=== PATIENT | male | born 1960 | race Hispanic/Latino ===

== ENCOUNTER 2016-07-18 19:52 | Emergency (ER) | payer OTHER ==
[2016-07-18] MEDS ORDERED: MORPHINE IM ONE (21:26)
[2016-07-18 21:58] LABS: Alanine Aminotransferase 11 units/L (7-56); Albumin 3.7 g/dL (3.9-5); Alkaline Phosphatase 92 units/L (35-129); Anion Gap 16 mmol/L; Blood Urea Nitrogen 12 mg/dL (9-20); Calcium 8.8 mg/dL (8.4-10.2); Carbon Dioxide 27 mmol/L (22-30); Chloride 99.7 mmol/L (98-107); Glucose 166 mg/dL (75-100); Lipase 29 units/L (13-60); Potassium 4.1 mmol/L (3.6-5.0); Sodium 139 mmol/L (137-145); Total Protein 7.4 g/dL (6.3-8.2)
[2016-07-18 22:04] LABS: Basophils % (Auto) 0.7 % (0.0-1.8); Eosinophils % (Auto) 3.2 % (0.0-4.3); Hematocrit 43.9 % (35.5-45.6); Hemoglobin 14.6 gm/dl (11.8-15.2); Mean Corpuscular HGB Conc 33 % (32-34); Mean Corpuscular Hemoglobin 33 pg (28-32); Mean Corpuscular Volume 98 fl (84-94); Platelet Count 246 K/mm3 (140-440); Red Blood Count 4.48 M/mm3 (3.65-5.03); Red Cell Distribution Width 13.2 % (13.2-15.2); White Blood Count 13.7 K/mm3 (4.5-11.0)
[2016-07-18 23:51] LABS: Bacteria,Urine 1+ /HPF (Negative); Bilirubin,Urine NEG (Negative); Blood,Urine NEG (Negative); Ketones,Urine NEG (Negative); Leukocyte Esterase,Urine NEG (Negative); Mucus,Urine FEW /HPF; Nitrite,Urine NEG (Negative); Protein,Urine <15 mg/dL mg/dL (Negative)
[2016-07-19] MEDS ORDERED: TORADOL IV ONE (00:08)
[2016-07-19] MEDS ORDERED: MORPHINE IV ONE (00:08)
--- NOTE | 2016-07-19 00:08 | Emergency Department Report ---
ED General Adult HPI - General Chief complaint: Abdominal Pain Stated complaint: RT FLANK PAIN/POSS KIDNEY STONE Time Seen by Provider: 07/18/16 23:54 Source: patient, family, RN notes reviewed, old records reviewed Mode of arrival: Ambulatory Limitations: No Limitations - History of Present Illness Initial comments: This is a 55-year-old male. He is previously unknown to me. His primary care doctor is with [facility]. Has a past medical history of obesity, diabetes, and nephrolithiasis. The patient presents to the ER with 3 days of flank pain that intermittently radiates to the right lower quadrant. The pain is sharp. It has no exacerbating or relieving factors. Currently denies nausea, vomiting, chest pain, shortness of breath. He denies testicular pain. He denies irritative and obstructive urinary symptoms. The patient had a noncontrast CT scan of the abdomen and pelvis performed at [facility] on 07/17/2016, which demonstrated "mild bilateral nephrocalcinosis similar to prior study. No hydronephrosis or ureteral stones noted on current examination. The appendix is visualized and appears to be normal. Os closed In addition, the CT scan was essentially unchanged compared to a prior CT scan from 05/26/2012. He was also noted to have chronic arthritic changes and bony changes which were essentially unchanged from a prior CT scan. There is no posterior leg pain. There is no posterior leg swelling. No recent trips greater than 4 hours. No recent hospital admissions. The patient was given morphine intramuscularly in the waiting room prior to my evaluation, he reports that this markedly improved his pain. He currently rates his pain as a 7 out of 10. -: Sudden Location: abdomen Radiation: flank Severity scale (0 -10): 7 Quality: aching Improves with: medication, rest Worsens with: movement Associated Symptoms: denies: confusion, chest pain, diaphoresis, headaches, loss of appetite, malaise, nausea/vomiting, shortness of breath, syncope, weakness - Related Data Previous Rx's Medication Instructions Recorded Last Taken Type Ketorolac [Toradol] 10 mg PO Q6H PRN #20 tablet 07/19/16 Unknown Rx Methocarbamol [Robaxin TAB] 750 mg PO TID PRN #30 tab 07/19/16 Unknown Rx Allergies Allergy/AdvReac Type Severity Reaction Status Date / Time No Known Allergies Allergy Verified 03/03/14 03:35 ED Review of Systems ROS: Stated complaint: RT FLANK PAIN/POSS KIDNEY STONE Other details as noted in HPI Constitutional: denies: fever Eyes: denies: vision change ENT: denies: epistaxis Respiratory: denies: cough Cardiovascular: denies: chest pain Gastrointestinal: abdominal pain Genitourinary: as per HPI Musculoskeletal: as per HPI, back pain Skin: as per HPI Neurological: as per HPI Psychiatric: as per HPI ED Past Medical Hx - Past Medical History Previous Medical History?: Yes Hx Diabetes: Yes Hx Kidney Stones: Yes - Surgical History Past Surgical History?: Yes Additional Surgical History: Left knee replacement. rhinoplasty - Social History Smoking Status: Never Smoker Substance Use Type: None - Medications Home Medications: Home Medications Medication Instructions Recorded Confirmed Last Taken Type Ketorolac [Toradol] 10 mg PO Q6H PRN #20 tablet 07/19/16 Unknown Rx Methocarbamol [Robaxin TAB] 750 mg PO TID PRN #30 tab 07/19/16 Unknown Rx ED Physical Exam - General Limitations: No Limitations General appearance: alert, in no apparent distress, obese - Head Head exam: Present: atraumatic, normocephalic - Eye Eye exam: Present: normal appearance, EOMI. Absent: nystagmus - ENT ENT exam: Present: normal exam, normal orophraynx, mucous membranes moist, normal external ear exam - Neck Neck exam: Present: normal inspection, full ROM. Absent: tenderness, meningismus - Respiratory Respiratory exam: Present: normal lung sounds bilaterally. Absent: respiratory distress, wheezes, rales, rhonchi, stridor, chest wall tenderness, accessory muscle use, decreased breath sounds, prolonged expiratory - Cardiovascular Cardiovascular Exam: Present: regular rate, normal rhythm, normal heart sounds. Absent: bradycardia, tachycardia, irregular rhythm, systolic murmur, diastolic murmur, rubs, gallop - GI/Abdominal GI/Abdominal exam: Present: soft, normal bowel sounds. Absent: distended, tenderness, guarding, rebound, rigid, pulsatile mass - Rectal Rectal exam: Present: deferred - exam: Present: normal inspection, other (is no testicular tenderness. There is normal testicular lie. There is normal cremasteric reflex bilaterally. No inguinal hernias are appreciated on direct examination. Escorted by nurse Albert Mooney during testicular exam.). Absent: scrotal swelling - Extremities Exam Extremities exam: Present: normal inspection, full ROM, normal capillary refill. Absent: pedal edema, joint swelling, calf tenderness - Back Exam Back exam: Present: normal inspection, full ROM, paraspinal tenderness. Absent : tenderness, CVA tenderness (R) - Neurological Exam Neurological exam: Present: alert, oriented X3, normal gait, other (Extraocular movements intact. Tongue midline. No facial droop. Facial sensation intact to light touch in the V1, V2, V3 distribution bilaterally. 5 and 5 strength in 4 extremities.. Sensation is intact to light touch in 4 extremities.). Absent : motor sensory deficit - Psychiatric Psychiatric exam: Present: normal affect, normal mood - Skin Skin exam: Present: warm, dry, intact, normal color. Absent: rash ED Course Vital Signs 07/18/16 07/18/16 07/18/16 21:10 21:53 23:13 Temperature 98.1 F Pulse Rate 80 Respiratory 18 18 18 Rate Blood Pressure 141/88 Blood Pressure [Right] O2 Sat by Pulse 95 Oximetry 07/18/16 07/19/16 07/19/16 23:16 00:05 01:20 Temperature Pulse Rate 72 72 62 Respiratory 18 18 18 Rate Blood Pressure Blood Pressure 120/76 116/70 106/72 [Right] O2 Sat by Pulse 96 Oximetry - Reevaluation(s) Reevaluation #1: 07/19/16 01:14 Differential diagnosis: Mechanical back pain, renal colic, flank pain, constipation Assessment and plan: 55-year-old male with partially reproducible right-sided paralumbar pain. He is afebrile with reassuring vital signs, recently had a negative noncontrast CT scan of the abdomen and pelvis, his physical examination is unremarkable, does not corroborated diagnosis of testicular torsion, intestinal obstruction, or aortic catastrophe. He felt much improved after symptomatic pain medication and therapy. He will be discharged with nonnarcotic pain medication, instructions to follow up with primary care doctor. Return precautions are reviewed. Patient and report that the patient's symptoms are much improved at the time of discharge. Reevaluation #2: 07/19/16 01:16 There are no pulmonary embolus or DVT risk factors, the patient is low risk by well's criteria. ED Medical Decision Making - Lab Data Result diagrams: 07/18/16 21:25 07/18/16 21:25 Vital Signs 07/18/16 07/18/16 07/18/16 21:10 21:53 23:13 Temperature 98.1 F Pulse Rate 80 Respiratory 18 18 18 Rate Blood Pressure 141/88 Blood Pressure [Right] O2 Sat by Pulse 95 Oximetry 07/18/16 23:16 Temperature Pulse Rate 72 Respiratory 18 Rate Blood Pressure Blood Pressure 120/76 [Right] O2 Sat by Pulse Oximetry Lab Results 07/18/16 07/18/16 07/18/16 Range/Units 21:25 21:25 Unknown WBC 13.7 H (4.5-11.0) K/mm3 RBC 4.48 (3.65-5.03) M/mm3 Hgb 14.6 (11.8-15.2) gm/dl Hct 43.9 (35.5-45.6) % MCV 98 H (84-94) fl MCH 33 H (28-32) pg MCHC 33 (32-34) % RDW 13.2 (13.2-15.2) % Plt Count 246 (140-440) K/mm3 Lymph % (Auto) 19.6 (13.4-35.0) % Mccormick % (Auto) 8.0 H (0.0-7.3) % Eos % (Auto) 3.2 (0.0-4.3) % Baso % (Auto) 0.7 (0.0-1.8) % Lymph # 2.7 (1.2-5.4) K/mm3 Mccormick # 1.1 H (0.0-0.8) K/mm3 Eos # 0.4 (0.0-0.4) K/mm3 Baso # 0.1 (0.0-0.1) K/mm3 Seg Neutrophils % 68.5 (40.0-70.0) % Seg Neutrophils # 9.4 H (1.8-7.7) K/mm3 Sodium 139 (137-145) mmol/L Potassium 4.1 (3.6-5.0) mmol/L Chloride 99.7 (98-107) mmol/L Carbon Dioxide 27 (22-30) mmol/L Anion Gap 16 mmol/L BUN 12 (9-20) mg/dL Creatinine 1.2 (0.8-1.5) mg/dL Estimated GFR > 60 ml/min BUN/Creatinine Ratio 10.00 % Glucose 166 H (75-100) mg/dL Calcium 8.8 (8.4-10.2) mg/dL Total Bilirubin 1.00 (0.1-1.2) mg/dL AST 14 (5-40) units/L ALT 11 (7-56) units/L Alkaline Phosphatase 92 (35-129) units/L Total Protein 7.4 (6.3-8.2) g/dL Albumin 3.7 L (3.9-5) g/dL Albumin/Globulin Ratio 1.0 % Lipase 29 (13-60) units/L Urine Color Yellow (Yellow) Urine Turbidity Clear (Clear) Urine pH 5.0 (5.0-7.0) Ur Specific [place] 1.015 (1.003-1.030) Urine Protein <15 mg/dl (Negative) mg/dL Urine Glucose (UA) Neg (Negative) mg/dL Urine Ketones Neg (Negative) mg/dL Urine Blood Neg (Negative) Urine Nitrite Neg (Negative) Urine Bilirubin Neg (Negative) Urine Urobilinogen 2.0 (<2.0) mg/dL Ur Leukocyte Esterase Neg (Negative) Urine WBC (Auto) 1.0 (0.0-6.0) /HPF Urine RBC (Auto) 1.0 (0.0-6.0) /HPF Urine Bacteria (Auto) 1+ (Negative) /HPF Urine Mucus Few /HPF Critical care attestation.: If time is entered above; I have spent that time in minutes in the direct care of this critically ill patient, excluding procedure time. ED Disposition Clinical Impression: Right flank pain Disposition: DISCHARGED TO HOME OR SELFCARE Is pt being admited?: No Does the pt Need Aspirin: No Condition: Stable Instructions: Flank Pain (ED) Additional Instructions: Rest and avoid heavy lifting. Avoid strenuous physical activity. Take pain medication as directed. Follow-up with a primary care doctor within the next 3- 5 days. Return to the ER right away with the pain, worsened pain, migration of pain, fevers or chills, intractable nausea or vomiting, inability to tolerate liquid feeds. Prescriptions: Ketorolac [Toradol] 10 mg PO Q6H PRN #20 tablet PRN Reason: Pain Methocarbamol [Robaxin TAB] 750 mg PO TID PRN #30 tab PRN Reason: Pain Referrals: PRIMARY CARE, [Primary Care Provider] - 3-5 Days CAROL DUCKWORTH MD [Staff Physician] - 3-5 Days
[2016-07-19 01:23] VITALS: BP 106/72
== END 2016-07-19 02:26 | disposition home or self-care (01) ==
LOC: ED 19:52
DX: R10.31 Right lower quadrant pain (principal); E11.9 Type 2 diabetes mellitus without complications
CPT/HCPCS: 36415; 80053; 81001; 83690; 85025; 96372; 96374; 96375; 99283; J1885; J2270

== ENCOUNTER 2017-09-22 06:27 | Emergency (ER) | payer OTHER ==
[2017-09-22] MEDS ORDERED: BENADRYL PO ONE (07:21)
--- NOTE | 2017-09-22 10:23 | Emergency Department Report ---
ED Rash HPI - HPI Chief Complaint: Skin/Abscess/Foreign Body Stated Complaint: RASH Time Seen by Provider: 09/22/17 10:14 Duration: 3 Days Location: Other (right T3 dermatome shows a rash) Rash Symptoms: Yes Itching, Yes Blistering Severity: moderate ED Review of Systems ROS: Stated complaint: RASH Other details as noted in HPI Comment: All other systems reviewed and negative ED Past Medical Hx - Past Medical History Previous Medical History?: Yes Hx Diabetes: Yes Hx Kidney Stones: Yes - Surgical History Past Surgical History?: Yes Additional Surgical History: Left knee replacement, 2017. rhinoplasty - Social History Smoking Status: Never Smoker Substance Use Type: None - Medications Home Medications: Home Medications Medication Instructions Recorded Confirmed Last Taken Type Ketorolac [Toradol] 10 mg PO Q6H PRN #20 tablet 07/19/16 Unknown Rx Methocarbamol [Robaxin TAB] 750 mg PO TID PRN #30 tab 07/19/16 Unknown Rx Acyclovir [Zovirax Tab] 800 mg PO Q4HR #35 tab 09/22/17 Unknown Rx HYDROcodone/APAP 5-325 [[place] 1 each PO Q4HR PRN #12 tablet 09/22/17 Unknown Rx 5/325] Ibuprofen [Motrin] 600 mg PO Q8H PRN #20 tablet 09/22/17 Unknown Rx predniSONE [Deltasone] 20 mg PO QDAY #5 tab 09/22/17 Unknown Rx Rash Exam - Exam General: Vital signs noted. No distress. Alert and acting appropriately. HEENT: No Periorbital Edema, No Conjuctival Injection, No Chemosis, No Perioral Edema, No Tongue Edema, No Uvular Edema, No Compromised Airway, No Drooling Lungs: Yes Good Air Exchange (Normal Breath Sounds), No Wheezes, No Ronchi, No Stridor, No Cough, No Labored Respirations, No Retractions, No Use of Accessory Muscles, No Other Abnormal Lung Sounds Heart: Yes Regular, No Murmur Skin: Yes Bulla(e) (patient shows a right-sided T3 dermatome rash. There is a vesicular rash that has some surrounding erythema and several patches in that distribution consistent with a herpes zoster), Yes Erythema Other: Positive: Abdomen Normal, Neurologic Normal, Musculoskeletal Normal ED Course Vital Signs 09/22/17 07:14 Temperature 97.8 F Pulse Rate 75 Respiratory 20 Rate Blood Pressure 147/95 O2 Sat by Pulse 97 Oximetry ED Medical Decision Making - Medical Decision Making Patient is a 56-year-old male who has classic zoster type rash. Patient will be treated with antivirals and will be discharged home Critical care attestation.: If time is entered above; I have spent that time in minutes in the direct care of this critically ill patient, excluding procedure time. ED Disposition Clinical Impression: Herpes zoster Qualifiers: Herpes zoster complications: without complications Qualified Code(s): B02.9 - Zoster without complications Disposition: DC- TO HOME OR SELFCARE Is pt being admited?: No Does the pt Need Aspirin: No Condition: Stable Instructions: Herpes Zoster (ED) Referrals: PRIMARY CARE, [Primary Care Provider] - 3-5 Days
[2017-09-22 10:45] VITALS: BP 139/85
== END 2017-09-22 10:45 | disposition home or self-care (01) ==
LOC: ED 06:27
DX: B02.9 Zoster without complications (principal); E11.9 Type 2 diabetes mellitus without complications; Z87.442 Personal history of urinary calculi; Z96.652 Presence of left artificial knee joint
CPT/HCPCS: 99282